=== PATIENT | female | born 1975 | race African-American/Black ===

== ENCOUNTER → 2017-03-10 11:19 | Outpatient (CLI) | payer MEDICARE ==
[2017-03-10 12:23] LABS: T4 THYROXIN - FREE 0.83 ng/dL (0.76-1.46); THYROID STIMULATING HORMONE 0.01 uIU/mL (0.36-3.74)
== END | disposition home or self-care (01) ==
LOC: D.LAB 11:19
PROVIDERS: Family Medicine
DX: E03.8 Other specified hypothyroidism (principal)

== ENCOUNTER → 2018-10-04 11:07 | Outpatient (CLI) | payer MEDICARE ==
[2018-10-04 12:13] LABS: T4 THYROXINE 4.6 ug/dL (4.7-13.3); THYROID STIMULATING HORMONE 7.89 uIU/mL (0.36-3.74)
== END | disposition home or self-care (01) ==
LOC: D.LAB 11:07
DX: E07.89 Other specified disorders of thyroid (principal)